=== PATIENT | female | born 1950 | race Caucasian/White ===

== ENCOUNTER 2017-04-25 19:06 | Inpatient (IN) | payer MEDICARE ==
--- NOTE | 2017-04-25 20:05 | RAD ---
TWO VIEWS LEFT HIP 04/25/17 HISTORY: Patient fell from standing position while feeding horses and now has left hip pain. FINDINGS: There is a mildly intertrochanteric left hip fracture. No dislocation is seen. No additiona l fracture is identified. Phleboliths overlie the left hemipelvis. There are two long screws transfix ing the partially visualized right hip. IMPRESSION: Mildly intertrochanteric left hip fracture. POS: [facility]
[2017-04-25] MEDS ORDERED: Morphine 2 MG/ML SYRINGE ONE (20:22)
[2017-04-25] MEDS ORDERED: Acetaminophen 500 MG TAB ONE (20:29)
--- NOTE | 2017-04-25 21:03 | RAD ---
PORTABLE AP CHEST X-RAY 04/25/17 HISTORY: Preoperative evaluation. COMPARISON: 09/24/15. FINDINGS: The cardiac silhouette and pulmonary vasculature are within normal limits. There is evidence of prior granulomatous disease. The linear density in the right hilar region persists but is less conspicuous and this could be related to an area of scarring. The lungs are otherwise clear. No other interval c hange. IMPRESSION: No acute cardiopulmonary process. POS: [facility]
[2017-04-25 21:27] LABS: #Basophils 0.1 thou/uL (0.0-0.2); #Eosinphils 0.1 thou/uL (0.0-0.7); #Lymphocytes 1.1 thou/uL (1.20-3.40); #Monocytes 0.5 thou/uL (0.11-0.59); #Neutrophils 5.4 thou/uL (1.40-6.50); %Basophils 1.2 % (0.0-1.0); %Eosinophils 1.7 % (0.0-10.0); %Lymphocytes 15.7 % (21.0-51.0); %Monocytes 6.9 % (0.0-10.0); %Neutrophils 74.5 % (42.0-75.0); Hemoglobin 13.8 g/dL (12.0-16.0); Mean Corpuscular HGB CONC 34.1 g/dL (32.0-36.0); Mean Corpuscular Hemoglobin 33.4 pg (27.0-31.0); Mean Corpuscular Volume 97.9 fl (81.0-99.0); Mean Platelet Volume 8.1 fL (7.4-10.4); Platelet Count 190 thou/uL (130-400); RBC Distribution Width 11.2 % (11.5-14.5); Red Blood Cell (RBC) Count 4.13 mill/uL (4.20-5.40); White Blood Cell (WBC) Count 7.3 thou/uL (4.8-10.8)
[2017-04-25 21:44] LABS: INR-International Normal Ratio 0.9; Prothrombin Time 12.5 SEC (12.0-14.7)
[2017-04-25 21:46] LABS: Anion Gap 13 mmol/L (10-20); BUN (Urea Nitrogen) 26 mg/dL (9.8-20.1); Calc. Creatinine Clearance 0 mL/min (70-130); Calcium 9.8 mg/dL (7.8-10.44); Carbon Dioxide 27 mmol/L (23-31); Chloride 105 mmol/L (98-107); Estimated GFR-MDRD 73; Glucose 99 mg/dL (80-115); Potassium 4.4 mmol/L (3.5-5.1); Sodium 141 mmol/L (136-145)
[2017-04-25] MEDS ORDERED: Ondansetron ODT 4 MG TAB PO PRN (21:58)
[2017-04-25] MEDS ORDERED: Dextrose 5% in Water 1,000 ML IV PRN (21:58)
[2017-04-25] MEDS ORDERED: Dextrose 50% Abboject 50 ML SYRINGE SLOW IVP PRN (21:58)
[2017-04-25] MEDS ORDERED: Ondansetron HCl/PF 4 MG/2 ML Vial IVP PRN (21:58)
[2017-04-25] MEDS ORDERED: traMADol HCl 50 MG TAB PO PRN ×2 (22:05)
[2017-04-25 23:12] VITALS: BMI 19.2
[2017-04-25] MEDS: Sodium Chloride 0.9% 1,000 ML IV SCH (23:30)
[2017-04-25] MEDS: Ketorolac Tromethamine 30 MG/ML VIAL IVP SCH (23:30)
[2017-04-25] MEDS: Acetaminophen 500 MG TAB PO SCH (23:31)
[2017-04-26 00:13] LABS: Bilirubin Negative (Negative); Blood, Urine Negative (Negative); Clarity CLOUDY (Clear); Glucose, Urine (Dipstick) Negative (Negative); Leukocyte Negative (Negative); Nitrite Negative (Negative); Protein, Urine (Dipstick) Negative (Neg-Trace); Specific Gravity, Urine 1.022 (1.002-1.036); Urobilinogen 0.2 mg/dL (0.2-1.0)
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
[2017-04-26] MEDS: Ketorolac Tromethamine 30 MG/ML VIAL IVP SCH ×4 (05:38→23:12)
[2017-04-26] MEDS: Acetaminophen 500 MG TAB PO SCH ×4 (05:38→23:13)
[2017-04-26 05:50] LABS: #Basophils 0.1 thou/uL (0.0-0.2); #Eosinphils 0.1 thou/uL (0.0-0.7); #Lymphocytes 1.4 thou/uL (1.20-3.40); #Monocytes 0.8 thou/uL (0.11-0.59); #Neutrophils 5.2 thou/uL (1.40-6.50); %Basophils 0.9 % (0.0-1.0); %Eosinophils 1.7 % (0.0-10.0); %Lymphocytes 18.5 % (21.0-51.0); %Monocytes 10.1 % (0.0-10.0); %Neutrophils 68.8 % (42.0-75.0); Mean Corpuscular HGB CONC 34.7 g/dL (32.0-36.0); Mean Corpuscular Hemoglobin 34.4 pg (27.0-31.0); Mean Platelet Volume 8.4 fL (7.4-10.4); Platelet Count 151 thou/uL (130-400); RBC Distribution Width 11.3 % (11.5-14.5); White Blood Cell (WBC) Count 7.6 thou/uL (4.8-10.8)
[2017-04-26 06:23] LABS: Anion Gap 11 mmol/L (10-20); BUN (Urea Nitrogen) 25 mg/dL (9.8-20.1); Calc. Creatinine Clearance 59 mL/min (70-130); Calcium 8.9 mg/dL (7.8-10.44); Carbon Dioxide 27 mmol/L (23-31); Chloride 108 mmol/L (98-107); Estimated GFR-MDRD 71; Glucose 94 mg/dL (80-115); Phosphorus 4.3 mg/dL (2.3-4.7); Sodium 142 mmol/L (136-145)
[2017-04-26] MEDS ORDERED: CEFAZOLIN/Water 2 GM/20 ML SYRINGE SLOW IVP SCH ×2 (08:00→14:15)
[2017-04-26] MEDS: Famotidine/PF 20 mg/2ml Vial SLOW IVP SCH ×2 (08:14→20:15)
--- NOTE | 2017-04-26 10:06 | CON ---
DATE OF CONSULTATION: 04/26/2017 CHIEF COMPLAINT: Left hip pain. HISTORY OF PRESENT ILLNESS: Ms. Son is a 66-year-old female who was outside her house yesterday wi . She stepped on a frozen pipe and fell. She landed on her left hip. She was unable to am bulate. She was found in the emergency room to have a left intertrochanteric femur fracture. She wa s admitted to the hospital. She has been stable overnight and resting comfortably. She is n.p.o. S he was admitted by the General Surgery Trauma Service and has had a trauma workup. No other injuries have been found. ALLERGIES: None. HOME MEDICATIONS: Forteo. PAST MEDICAL HISTORY: Osteoporosis and hyperlipidemia. PAST SURGICAL HISTORY: Previous Lasik surgery, x2, previous right wrist surgery, previous left ankle surgery and right knee arthroscopy, right hip fracture repair. SOCIAL HISTORY: The patient denies tobacco, alcohol, or drug use. FAMILY MEDICAL HISTORY: Noncontributory. REVIEW OF SYSTEMS: Positive for mild left hip pain. IMAGES: X-rays were reviewed, which demonstrate a displaced left intertrochanteric femur fracture. PHYSICAL EXAMINATION: VITAL SIGNS: Temperature is 97.9, pulse is 70, respiratory 18, oxygen saturation 100%, blood pressur e 111/68. GENERAL: She is lying supine, alert, oriented, no apparent distress. HEENT: Normocephalic, atraumatic. RESPIRATORY: Breathing comfortably. ABDOMEN: Soft, nontender, nondistended. MUSCULOSKELETAL: The patient's left leg is painful with motion. She is neurovascularly intact in th e foot and ankle. She has a palpable dorsalis pedis pulse. SKIN: Intact. EXTREMITIES: Upper extremities are atraumatic. IMPRESSION: Left intertrochanteric femur fracture. PLAN: At this point, the patient will need to go to the operating room. I have discussed this with her. The goal of surgery is to allow early mobilization and prevent complications of prolonged bed r est. Plan for surgery would be open reduction and plate fixation of the intertrochanteric femur frac ture with DHS device. She will be n.p.o. until surgery. She will have appropriate preoperative anti biotics and deep venous thrombosis prophylaxis. She is aware of risks and benefits and wants to proc eed.
[2017-04-26] MEDS ORDERED: CEFAZOLIN/Water 2 GM/20 ML SYRINGE ONE (11:10)
[2017-04-26] MEDS ORDERED: Scopolamine 1.5 mg/72 hour Patch ONE (12:23)
[2017-04-26] MEDS ORDERED: Fentanyl 100 MCG/2 ML VIAL ONE ×2 (12:43→15:06)
[2017-04-26] MEDS ORDERED: Morphine 10 MG/ML VIAL ONE (12:43)
[2017-04-26] MEDS ORDERED: Midazolam HCl 2 mg/2 ml Vial ONE (12:43)
[2017-04-26] MEDS: Sodium Chloride 0.9% 1,000 ML IV SCH ×2 (13:43→18:31)
--- NOTE | 2017-04-26 13:49 | RAD ---
LEFT FEMUR TWO VIEWS: History: Fall. Leg injury. FINDINGS: Minimally displaced oblique intertrochanteric fracture is present without impaction. Degenerative mira nges of the hip and knee are visible. Patella is absent, presumed surgically. Osseous structures are demineralized. IMPRESSION: 1. Left hip fracture. POS: [facility]
--- NOTE | 2017-04-26 13:56 | PRG ---
DATE OF SERVICE: 04/26/2017 SUBJECTIVE: The patient is hospital day #2 status post ground level fall in which she sustained a le ft hip fracture. The patient is currently on the surgical floor, awaiting operative intervention by Orthopedics. The patient has been n.p.o. overnight. Her pain is being controlled and she currently has no complaints. PHYSICAL EXAMINATION: VITAL SIGNS: Temperature is 98.0, heart rate 74, blood pressure 110/70, respirations 12, oxygen satu ration 100% on room air. GENERAL: The patient is alert and oriented x3. Wai coma scale is 15. HEENT: Unremarkable. Trachea is midline. No JVD. LUNGS: Chest clear to auscultation with good inspiratory and expiratory effort. HEART: Regular rate and rhythm. ABDOMEN: Soft, flat, nontender with hypoactive bowel sounds. EXTREMITIES: Neurovascularly intact x4. LABORATORY DATA: White blood cell count 7.6, hemoglobin 12.0, hematocrit 34.7, platelet 151, sodium 142, potassium 4.0, chloride 108, CO2 of 27, BUN 25, creatinine 0.81, magnesium 2.0, phosphorus 4.3. The patient complained of some left thigh pain and after review of the radiographs from last night it was noted that this part was not assessed on her hip film, so we will get films this morning to eval uate the entire femur. ASSESSMENT AND PLAN: 1. Status post ground level fall. 2. Left hip fracture. 3. Left thigh pain. The plan will be to obtain a left femur films, continue pain medication and n.p.o. status, awaiting s urgical repair. Afterwards, we will have PT and OT evaluate the patient and most likely a rehab cons ultation. The evaluation and examination was done with Dr. Martinez this morning during rounds.
[2017-04-26] MEDS ORDERED: Ondansetron HCl/PF 4 MG/2 ML Vial IVP PRN (14:36)
[2017-04-26] MEDS ORDERED: Promethazine HCl 25 MG/ML VIAL SLOW IVP PRN (14:36)
[2017-04-26] MEDS ORDERED: Promethazine HCl 25 MG/ML VIAL IM PRN (14:36)
[2017-04-26] MEDS ORDERED: Ketorolac Tromethamine 30 MG/ML VIAL ONE (15:19)
[2017-04-26] MEDS ORDERED: ePHEDrine/0.9% NaCl/PF SYRINGE 50 mg/10 ml ONE (15:19)
[2017-04-26] MEDS ORDERED: Dexamethasone 20 MG/5 ML VIAL ONE (15:19)
[2017-04-26] MEDS ORDERED: Metoclopramide HCl 10 MG/2 ML VIAL ONE (15:19)
[2017-04-26] MEDS ORDERED: Lidocaine 1% PF 5 ML VIAL ONE (15:19)
[2017-04-26] MEDS ORDERED: Ondansetron HCl/PF 4 MG/2 ML Vial ONE (15:19)
[2017-04-26] MEDS ORDERED: diphenhydrAMINE 50 MG/ML VIAL ONE (15:19)
[2017-04-26] MEDS ORDERED: Propofol 200 MG/20 ML VIAL ONE (15:19)
--- NOTE | 2017-04-26 16:27 | OP ---
DATE OF OPERATION: 04/26/2017 PROCEDURE PERFORMED: Open reduction and internal fixation of left intertrochanteric femur fracture. PREOPERATIVE DIAGNOSIS: Left intertrochanteric femur fracture. POSTOPERATIVE DIAGNOSIS: Left intertrochanteric femur fracture. COMPLICATIONS: None. ESTIMATED BLOOD LOSS: 100 mL SURGEON: Romeo Hudson M.D. ENDOCRINOLOGY NURSE: Lam Coppola PA-C INDICATIONS: Ms. Son is a 66-year-old female who fell on ice yesterday. She landed on her left hip. She sustained an intertrochanteric femur fracture with displacement. She was indicated for open reduction and internal fixation to restore anatomic alignment and promote healing as well as promote early mobilization. Risks have been reviewed in detail. She has elected to proceed with the operation. DESCRIPTION OF PROCEDURE: Ms. Son was identified in the preoperative holding area. Her correct extremity was marked. She was carried to the operating room. She was positioned supine. General anesthesia was induced. A multidisciplinary timeout was performed. The left lower extremity was prepped and draped in sterile fashion. We began the procedure with an evaluation of the hip under intraoperative x- ray. Once we had reduced the hip, we made a lateral incision. We dissected down through to the fascial level. We split the fascia and then split the underlying vastus lateralis to the bony level. At this point, we applied our 135-degree guide and a guidewire was placed in the center position of the femoral head. At this point, we overreamed the wire for 80 mm. We then placed our 80 mm screw with 3-hole side plate. The sideplate was impacted. At this point, we placed 3 distal screws fixing the plate to the bone. We took final images. We then irrigated and closed with 0 Vicryl suture, 2-0 Vicryl suture and then avery. Sterile dressing was applied. The patient was taken to the recovery room in good condition. IMPLANTS: A [employer] 3-hole dynamic hip screw with 80-mm screw. [facility]
[2017-04-26] MEDS ORDERED: Morphine 2 MG/ML SYRINGE SLOW IVP PRN (17:21)
--- NOTE | 2017-04-26 18:09 | RAD ---
THREE INTRAOPERATIVE FLUOROSCOPIC IMAGES LEFT HIP 04/26/17 HISTORY: ORIF left hip. Fracture. COMPARISON: 04/25/17. FINDINGS: There is a center plate and dynamic compression screw with distal interlocking screws transfixing the previously noted intertrochanteric left hip fracture. There is improvement in alignment of the fract ure fragments. No hardware complication seen. IMPRESSION: Postsurgical changes related to internal fixation of the intertrochanteric left hip fracture. POS: [facility]
--- NOTE | 2017-04-27 00:33 | PRG ---
DATE OF SERVICE: 04/26/2017. SUBJECTIVE: Preethi Son is a 66-year-old female status post mechanical fall. She is postop day 0 hip fracture repair. Upon my evaluation, the patient vocalized no complaint. She appears comfortabl e and denies pain. OBJECTIVE: VITAL SIGNS: Reviewed and stable. GENERAL: The patient is resting in bed in no acute distress. Breathing is nonlabored. ASSESSMENT AND PLAN: As documented in daily progress note. Continue care as ordered. P.o. pain man agement. Continue to monitor.
[2017-04-27] MEDS: Sodium Chloride 0.9% 1,000 ML IV SCH (01:19)
[2017-04-27 03:32] LABS: #Lymphocytes 0.8 thou/uL (1.20-3.40); #Monocytes 0.5 thou/uL (0.11-0.59); %Basophils 0.4 % (0.0-1.0); %Eosinophils 0.1 % (0.0-10.0); %Lymphocytes 9.1 % (21.0-51.0); %Monocytes 6.4 % (0.0-10.0); %Neutrophils 84.1 % (42.0-75.0); Hemoglobin 11.3 g/dL (12.0-16.0); Mean Corpuscular Hemoglobin 32.7 pg (27.0-31.0); Mean Corpuscular Volume 99.1 fl (81.0-99.0); Platelet Count 151 thou/uL (130-400); RBC Distribution Width 11.2 % (11.5-14.5); Red Blood Cell (RBC) Count 3.46 mill/uL (4.20-5.40); White Blood Cell (WBC) Count 8.4 thou/uL (4.8-10.8)
[2017-04-27 03:54] LABS: Anion Gap 10 mmol/L (10-20); BUN (Urea Nitrogen) 17 mg/dL (9.8-20.1); Calc. Creatinine Clearance 65 mL/min (70-130); Calcium 8.4 mg/dL (7.8-10.44); Carbon Dioxide 25 mmol/L (23-31); Chloride 108 mmol/L (98-107); Estimated GFR-MDRD 80; Glucose 122 mg/dL (80-115); Magnesium 1.9 mg/dL (1.6-2.6); Phosphorus 3.9 mg/dL (2.3-4.7); Potassium 4.5 mmol/L (3.5-5.1); Sodium 138 mmol/L (136-145)
[2017-04-27] MEDS: Ketorolac Tromethamine 30 MG/ML VIAL IVP SCH (05:19)
[2017-04-27] MEDS: Acetaminophen 500 MG TAB PO SCH ×3 (05:19→19:24)
[2017-04-27] MEDS: Teriparatide [Forteo] 2.4 ML SC SCH (08:10)
[2017-04-27] MEDS: Famotidine/PF 20 mg/2ml Vial SLOW IVP SCH (08:14)
[2017-04-27] MEDS: Senokot S 8.6-50 MG TAB PO SCH ×2 (08:14→20:23)
[2017-04-27] MEDS: Polyethylene Glycol 3350 17 GM Packet PO SCH (08:15)
[2017-04-27] MEDS: Ibuprofen 600 MG TAB PO SCH ×3 (11:14→20:23)
[2017-04-27] MEDS: traMADol HCl 50 MG TAB PO SCH ×2 (15:49→16:25)
--- NOTE | 2017-04-27 17:54 | PRG ---
DATE OF SERVICE: 04/27/2017 SUBJECTIVE: The patient is hospital day 3, postop day 1, status post open reduction internal fixatio n of left intertrochanteric femur fracture. The patient tolerated this procedure well and has been w orking with physical and occupational therapy and the patient is markedly fit for her age and active. She has been progressing quite well to the point that physical therapy has recommended that she be allowed to return home with outpatient physical and occupational therapy, which the patient is in ful l agreement with this. The patient's pain is controlled and she is tolerating a diet. OBJECTIVE: VITAL SIGNS: Temperature is 98.5, heart rate 78, blood pressure 114/63, respirations 14, oxygen satu ration is 99% on room air. GENERAL: The patient is resting comfortably in bed. She is alert and oriented x3. Wai coma sca le is 15. She currently has no complaints. HEENT: Unremarkable. HEART: Regular rate and rhythm. ABDOMEN: Soft, flat, nontender with active bowel sounds. LUNGS: Clear to auscultation bilaterally with good inspiratory and expiratory effort. EXTREMITIES: Neurovascularly intact x4. Postop dressings are clean, dry, and intact. LABORATORY DATA: White blood cell count 8.4, hemoglobin 11.3, hematocrit 34.3, platelets 151. Sodiu m 138, potassium 4.5, chloride 108, CO2 of 25, BUN 17, creatinine 0.73, glucose 122. Magnesium 1.9, phosphorus 3.9. There are no radiographs to review this morning. ASSESSMENT AND PLAN: 1. Status post ground level fall. 2. Status post open reduction internal fixation of left hip fracture. PLAN: Will be to continue physical and occupational therapy, supportive care. Arrange outpatient PT and OT. After discussion with case management, this was likely to happen tomorrow. We will plan di scharge the patient once this has been arranged. This examination and evaluation was done with Dr. Leni daigle during rounds this morning.
[2017-04-27] MEDS ORDERED: Enoxaparin Sodium 40 MG/0.4 ML SYRINGE SC SCH (21:00)
--- NOTE | 2017-04-27 22:37 | PRG ---
DATE OF SERVICE: 04/27/2017. SUBJECTIVE: A 66-year-old female status post mechanical fall and hip fracture repair. She is postop day #1. Patient worked with physical therapy. Pain has been controlled via p.o. analgesics. She v ocalized no complaint upon my evaluation. OBJECTIVE: VITAL SIGNS: Reviewed and stable. GENERAL: The patient is afebrile. Resting in bed, is in no acute distress. Breathing is nonlabored . ASSESSMENT AND PLAN: As documented in the daily progress note. Continue care as ordered. Continue to monitor.
[2017-04-28] MEDS: traMADol HCl 50 MG TAB PO SCH ×3 (00:40→14:44)
[2017-04-28] MEDS: Acetaminophen 500 MG TAB PO SCH ×3 (00:40→14:44)
[2017-04-28 05:55] LABS: Anion Gap 10 mmol/L (10-20); BUN (Urea Nitrogen) 19 mg/dL (9.8-20.1); Calc. Creatinine Clearance 65 mL/min (70-130); Calcium 8.8 mg/dL (7.8-10.44); Carbon Dioxide 28 mmol/L (23-31); Chloride 107 mmol/L (98-107); Estimated GFR-MDRD 79; Glucose 88 mg/dL (80-115); Magnesium 1.7 mg/dL (1.6-2.6); Phosphorus 3.7 mg/dL (2.3-4.7); Potassium 4.3 mmol/L (3.5-5.1); Sodium 141 mmol/L (136-145)
[2017-04-28] MEDS: Ibuprofen 600 MG TAB PO SCH ×2 (07:50→14:44)
[2017-04-28] MEDS: Teriparatide [Forteo] 2.4 ML SC SCH (07:50)
[2017-04-28] MEDS: Senokot S 8.6-50 MG TAB PO SCH (07:51)
[2017-04-28] MEDS: Polyethylene Glycol 3350 17 GM Packet PO SCH (07:51)
[2017-04-28 12:10] VITALS: BP 103/64; TEMP 98.2
--- NOTE | 2017-04-29 01:53 | DIS ---
DATE OF ADMISSION: 04/25/2017 DATE OF DISCHARGE: 04/28/2017 ADMITTING DIAGNOSES: 1. Status post ground level fall. 2. Left hip fracture. CONSULTATIONS: Orthopedics, Dr. Hudson. PROCEDURES: Open reduction internal fixation of left intertrochanteric femur fracture. SUMMARY: The patient is a 66-year-old woman who was walking when she slipped on the ice landed on he r hip. The patient was brought to the emergency department, evaluated and examined and found to have the above injuries. She will be able to be taken to the operating room to undergo her above procedu re, which she tolerated well. The patient progressed very well with physical and occupational therap y to the point that hospital day 3, it was recommended that she will be allowed to be discharged home with support and home physical and occupational therapy, which she was in a total agreement with the patient will follow up with Dr. Hudson in 7 to 10 days or sooner as needed. The patient may foll ow up with the trauma clinic as needed also.
== END 2017-04-28 15:30 | disposition home or self-care (01) | DRG 482 ==
LOC: ERS 19:06 → SJJU 22:00
PROVIDERS: ADMIT Specialist; ATTEND Specialist
PROC: 0QS704Z Reposition Left Upper Femur with Internal Fixation Device, Open Approach (ICD-10-PCS; principal; 2017-04-26)
DX: S72.142A Displaced intertrochanteric fracture of left femur, initial encounter for closed fracture (principal); E78.5 Hyperlipidemia, unspecified; W00.0XXA Fall on same level due to ice and snow, initial encounter; M81.0 Age-related osteoporosis without current pathological fracture
CPT/HCPCS: 36415; 71045; 76000; 80048; 81003; 83735; 84100; 85025; 85610; 86850; 86900; 86901; C1713; C1769; G8978-GP-CK; G8979-GP-CJ; G8987-GO-CK; G8988-GO-CI; J0131; J1100; J1200; J1650; J1885; J2001; J2250; J2270; J2405; J2704; J2765; J3010; S0028

== ENCOUNTER 2018-01-24 12:17 | Outpatient (CLI) | payer MEDICARE ==
--- NOTE | 2018-01-24 14:02 | ULT ---
THYROID ULTRASOUND: Date: 01/24/18 INDICATION: History of thyroid nodules. COMPARISON: None. FINDINGS: The right thyroid lobe measures 5.3 x 1.7 x 1.0 cm. The left thyroid lobe measures 4.5 x 1.5 x 1.0 cm . Thyroid isthmus measures 0.2 cm. There is a 6.0 mm hypoechoic nodule seen within the superior pole of the right thyroid lobe. An addit ional 3.0 mm hypoechoic nodule is seen within the inferior pole of the right thyroid lobe. There is a 6.0 mm hypoechoic nodule within the inferior pole of the left thyroid lobe. An additional 5.0 mm nodule is seen within the medial aspect of the mid to lower pole of the left thyroid gland. Th ere is a 6.0 mm hypoechoic nodule within the mid pole of the left thyroid gland. IMPRESSION: 1. Multinodular goiter. 2. Bilateral hypoechoic nodules consistent with small TI-RADS 4 lesion. These are all below 1.0 cm i n size and require no further follow-up. POS: [facility]
== END 2018-01-24 12:18 | disposition home or self-care (01) ==
LOC: BICULT 12:17
PROVIDERS: ATTEND Otolaryngology Plastic Surgery within the Head & Neck
DX: E04.2 Nontoxic multinodular goiter (principal)
CPT/HCPCS: 76536

== ENCOUNTER 2018-08-07 16:00 | Outpatient (CLI) | payer MEDICARE ==
--- NOTE | 2018-08-08 07:50 | MMO ---
Bilateral MAMMO Bilat Screen [facility]. CLINICAL HISTORY: Patient is 67 years old and is seen for screening. The patient has no family history of breast cancer. The patient has no personal history of cancer. The patient has a history of right Excisional Biopsy in 1989 - benign. VIEWS: The views performed were: bilateral craniocaudal with tomosynthesis and bilateral mediolateral oblique with tomosynthesis. MAMMOGRAM FINDINGS: There are scattered fibroglandular densities. There are benign appearing calcifications seen in both breasts. There are no suspicious masses, suspicious calcifications, or new areas of architectural distortion. IMPRESSION: THERE IS NO MAMMOGRAPHIC EVIDENCE OF MALIGNANCY. A ROUTINE FOLLOW-UP MAMMOGRAM IN 1 YEAR IS RECOMMENDED. THE RESULTS OF THIS EXAM WERE SENT TO THE PATIENT. ACR BI-RADS Category 2 - Benign finding MAMMOGRAPHY NOTE: 1. A negative mammogram report should not delay a biopsy if a dominant of clinically suspicious mass is present. 2. Approximately 10% to 15% of breast cancers are not detected by mammography. 3. Adenosis and dense breasts may obscure an underlying neoplasm.
== END 2018-08-07 16:01 | disposition home or self-care (01) ==
LOC: BICMAMMO 16:00
PROVIDERS: ATTEND Family Medicine
DX: Z12.31 Encounter for screening mammogram for malignant neoplasm of breast (principal)
CPT/HCPCS: 77063; 77067

== ENCOUNTER 2024-11-14 11:44 | Outpatient (CLI) | payer MEDICARE | END 2024-11-14 11:45 | disposition home or self-care (01) | LOC: ULT 11:44 | PROVIDERS: ATTEND Internal Medicine Hematology & Oncology | DX: I82.402 Acute embolism and thrombosis of unspecified deep veins of left lower extremity (principal) ==